=== PATIENT | male | born 1965 | race Hispanic/Latino ===

== ENCOUNTER 2019-02-13 10:05 | Emergency (ER) | payer SELFPAY ==
[2019-02-13] MEDS ORDERED: Lidocaine 1% w/Epinephrine 1:100K 30 ML VIAL ONE (10:27)
[2019-02-13] MEDS ORDERED: Sodium Bicarbonate 2.5 MEQ/5 ML VIAL ONE (10:27)
[2019-02-13] MEDS ORDERED: Adacel (T-DAP) 0.5 ML SYRINGE ONE (11:00)
[2019-02-13] MEDS ORDERED: Bacitracin 1 PK ONE (11:23)
== END 2019-02-13 12:14 | disposition home or self-care (01) ==
LOC: NAV ERS 10:05
DX: S01.112A Laceration without foreign body of left eyelid and periocular area, initial encounter (principal); Z23 Encounter for immunization; W22.8XXA Striking against or struck by other objects, initial encounter
CPT/HCPCS: 12013; 90471; 90715; J2001